=== PATIENT | female | born 1950 | race Caucasian/White ===

== ENCOUNTER 2020-01-29 15:48 | Observation (INO) ==
--- NOTE | 2020-01-29 16:12 | ERNOTE ---
Chest Pain/Cardiac HPI Chief Complaint: Chest Pain Time Seen by Provider: 01/29/20 15:50 Source: patient Exam Limitations: no limitations Allergies/Adverse Reactions: Allergies No Known Allergies Allergy (Verified 01/29/20 16:01) Home Medications: HOME MEDICATIONS Levothyroxine Sodium [Synthroid] 50 mcg PO DAILY 01/29/20 [Last Taken Unknown] Narrative: Patient is coming to the ER for chest pain. She states the pain started last night about 7 PM, central pressure radiating towards her back where it feels more sharp. She was able to sleep, but still states that the pain lasted t hrough the night, resolved at some point this morning. At this point she still has some sharp discomfort in her back, no more pressure feeling, she states "I just do not feel good" She has no personal history of heart disease, has a strong family history of coronary artery disease, her father in his late 60s of a massive heart attack. Her brother had a stent placed a few days ago, he had bypass surgery last week and is currently in his mid 70s Date (Duration): 01/28/20 Time (Timing): 19:00 Timing: intermittent Severity/Quality: pressure Location: central Chest Pain Radiation: shoulders, back Activities at Onset: sleep Modifying Factors - Improves: Absent: breathing, exercise, position, movement Modifying Factors - Worsens: Present: nothing. Absent: exercise Nitro Today/Relief: no nitro taken today Aspirin Treatment Today: 81 mg x 4, provided at home Associated Symptoms: Present: shortness of breath. Absent: headache, dizziness, diaphoresis, fever/chills, heartburn, nausea, vomiting Prior Chest Pain/Cardiac Workup: Reports: no prior cardiac workup. Denies: prior chest pain Prior Treatment: Denies: recently seen, currently on antibiotics Review of Systems - Review of Systems Constitutional: Absent: recent illness, fever, chills ENT: Absent: nose congestion, sore throat Respiratory: Absent: shortness of breath Cardiology: Present: See HPI, chest pain. Absent: palpitations Gastrointestinal/Abdominal: Absent: nausea, abdominal pain Genitourinary: Present: no symptoms reported Musculoskeletal: Present: See HPI Neurological: Absent: headache Medical History (Last Reviewed 01/29/20 @ 16:11 by Beulah Robin MD) Hypothyroid Surgical History: Surgical History (Last Reviewed 01/29/20 @ 16:11 by Beulah Robin MD) H/O: hysterectomy Family History: Family History (Last Updated 01/29/20 @ 16:00 by Sherley Gao RN) Brother Myocardial infarction Father Myocardial infarction Social History: (Last Updated 01/29/20 @ 16:01 by Sherley Gao RN) Tobacco: Smoking Status: Former smoker Alcohol: alcohol intake: former Substance Use: substance use type: does not use Physical Exam - Physical Exam General Appearance: Present: wd/wn, alert, no apparent distress, anxious Eye Exam: Normal inspection: bilateral Ears, Nose, Throat: Present: normal pharynx Respiratory: Present: no respiratory distress, normal breath sounds, no accessory muscle use, chest nontender, lungs clear Cardiovascular/Chest: Present: regular rate, rhythm, no murmur Gastrointestinal/Abdominal: Present: normal bowel sounds, nontender, nondistended, soft Back Exam: Present: normal inspection, no vertebral tenderness. Absent: muscle spasm Extremity Exam: Present: no edema Neurological Exam: Present: alert, oriented, normal mood/affect Skin Exam: Present: normal color, warm/dry Progress - Results and Orders Patient's Lab Results:: I have reviewed the patient's lab results. - Vital Signs Patient's Vital Signs:: I have reviewed the patient's vital signs. Vital Signs: Vital Signs 01/29/20 15:48 Temperature 36.8 C Pulse Rate 62 Respiratory Rate 16 Blood Pressure 173/83 H O2 Sat by Pulse Oximetry 95 - EKG EKG #1 EKG: NSR - sinus bradyacardia, nonspecific ST T wave changes EKG read: Interp. by me - X-Ray X-Ray #1 X-Ray: chest - no acute changes Interpretation: Reviewed by me - CT/Ultrasound CT/Ultrasound Narrative: CTA aorta: MPRESSION: MILD SCATTERED ATHEROSCLEROTIC DISEASE. NO AORTIC DISSECTION. NO THORACIC OR ABDOMINAL AORTIC ANEURYSM. OTHER INCIDENTAL FINDINGS DISCUSSED. - Progress/Reassessment Chief Complaint: Chest Pain Progress Note-Subjective: 01/29/20 16:48 discussed test results and limits of test to rule CAD patient denies chest pressure at this time but continues to have sharp back pain without tenderness on palpation will get CTA aorta 01/29/20 17:47 discussed test results with patient and , on interchest patient has a score of 2 and is not considered low risk offered admission, patient agreed 01/29/20 17:50 discussed with paloma Maldonado to admit for chest pain observation Departure Clinical Impression: Chest pain Qualifiers: Chest pain type: unspecified Qualified Code(s): R07.9 - Chest pain, unspecified - Departure Disposition: Still a patient Condition: Stable
[2020-01-29 16:22] LABS: Hematocrit 40.8 % (37.0-47.0); Hemoglobin 13.3 gm/dL (12.5-16.0); Mean Cell Volume 89.9 fl (78-100); Mean Corpuscular Hemoglobin 29.3 pg (27-31); Mean Corpuscular Hgb Conc 32.6 g/dl (32-36); Mean Platelet Volume 9.7 fl (8-12.5); Neutrophil # 3.6 K/mm3 (1.3-6.0); Neutrophil % 66.9 % (42-75.0); Platelet Count 222 K/mm3 (150-450); Red Blood Count 4.54 M/mm3 (4.2-5.4); Red Cell Distribution Width 13.3 % (11.5-14.0); White Blood Count 5.4 K/mm3 (4.0-10.5)
[2020-01-29 16:34] LABS: Prothrombin Time (Patient) 10.7 Seconds (9.1-10.7)
[2020-01-29 16:38] LABS: INR 1.08 INR (0.92-1.08)
[2020-01-29 16:39] LABS: ALT 19 U/L (19-67); AST 14 U/L (0-48); Albumin * 3.8 gm/dl (3.4-5.0); Alkaline Phosphatase * 81 U/L (50-170); Anion Gap 8.9 mmol/L (6.8-13.8); BUN/Creatinine Ratio 13.2 (9.0-21.6); Bilirubin, Total 0.6 mg/dL (0.0-1.1); Blood Urea Nitrogen 10 mg/dL (3-23); Ca. Corrected For Albumin 8.6 mg/dL (8.4-10.2); Calcium * 8.8 mg/dL (7.9-10.9); Carbon Dioxide 29.8 mmol/L (24-32.6); Chloride 105 mmol/L (97-106); Glucose * 94 mg/dL (70-110); Potassium 3.7 mmol/L (3.4-4.6); Sodium 140 mmol/L (132-142); Total Protein 7.3 gm/dL (6.2-8.2); Troponin I Less than 0.017 ng/mL (0.00-0.10)
[2020-01-29] MEDS ORDERED: ROSUVASTATIN CALCIUM 20 MG TABLET PO STA (18:16)
--- NOTE | 2020-01-29 20:10 | HP ---
Chief Complaint - Chief Complaint Date of Service: 01/29/20 Time of Service: 20:09 Chief Complaint: chest pain History of Present Illness: Patient with past medical history of hypothyroidism presents with 1 day of chest pain. It started with back pain between her shoulder blades last night, and this morning she woke with lower anterior bilateral chest pain and some pain in her left arm. She took four baby aspirin last night and four baby aspirin this morning to try to help with the pain. She denies shortness of breath, nausea, diaphoresis. She has a strong family history of heart disease, with fatal AL in her father and brother. Her brother had a negative stress test prior to having a cardiac cath that showed blockages. She also states her daughter went to the ED months with chest pain thinking it was a heart attack, and it turned out to be a thyroid disorder. Denies alcohol or tobacco use. She is admitted for chest pain rule out. Initial troponin was negative. EKG showed sinus bradycardia. Since she was having the back pain, CT angio was obtained, which showed "MILD SCATTERED ATHEROSCLEROTIC DISEASE. NO AORTIC DISSECTION. NO THORACIC OR ABDOMINAL AORTIC ANEURYSM." Currently, she is not having the back pain, but is having some dull anterior chest pain. Her blood pressure is higher than her normal, with systolic readings in the 150s. Medical History (Last Reviewed 01/29/20 @ 19:04 by Uyen Sanchez RN) Hypothyroid Surgical History: Surgical History (Last Reviewed 01/29/20 @ 19:04 by Uyen Sanchez RN) H/O: hysterectomy Family History: Family History (Last Reviewed 01/29/20 @ 19:05 by Uyen Sanchez RN) Brother Myocardial infarction Father Myocardial infarction Social History: (Last Updated 01/29/20 @ 19:07 by Uyen Sanchez RN) Tobacco: Smoking Status: Never smoker Alcohol: alcohol intake: never Substance Use: substance use type: does not use Dietary Habits: well-balanced diet: daily or most days caffeine: Yes Type: coffee daily servings of milk/calcium: 0-1 eating out: rarely or never reads food labels: seldom or never during the past year weight has: remained stable Review Of Systems (GEN) - Review of Systems Generalized/Overall Review: Absent: Fever Respiratory: Present: Shortness of Breath - Feels a "catch" with inhalation. Absent: Cough Cardiac: Present: Chest Pain. Absent: Edema Abdominal: Absent: Nausea, Vomiting, Constipation, Diarrhea Genitourinary: Absent: Dysuria Neurological: Present: No Symptoms Reported Skin: Present: No Symptoms Reported Immunizations: IMMUNIZATION HX Immunizations Up to Date Yes History of Influenza Vaccine No Hx Pneumococcal Vaccination No Allergies/Adverse Reactions: Allergies Allergy/AdvReac Type Severity Reaction Status Date / Time No Known Allergies Allergy Verified 01/29/20 16:01 Home Medications: HOME MEDICATIONS Levothyroxine Sodium [Synthroid] 50 mcg PO DAILY 01/29/20 [Last Taken 01/29/20 05:30] Exam - Exam Vital Signs: Vital Signs - Last Taken Temp 36.8 C 01/29/20 18:41 Pulse 60 01/29/20 18:41 Resp 17 01/29/20 18:41 BP 157/80 H 01/29/20 18:41 Pulse Ox 100 01/29/20 18:41 Constitutional: Present: Alert, Cooperative, No distress Respiratory: Present: lungs clear, normal breath sounds, no respiratory distress Cardiovascular/Chest: Present: regular rate, rhythm Diagnostic Studies: Abnormal Lab Results 01/29/20 Range/Units 16:14 Lymphocytes # 1.20 L (1.5-3.5) k/mm3 Laboratory Results WBC 5.4 K/mm3 (4.0-10.5) 01/29/20 16:14 RBC 4.54 M/mm3 (4.2-5.4) 01/29/20 16:14 Hgb 13.3 gm/dL (12.5-16.0) 01/29/20 16:14 Hct 40.8 % (37.0-47.0) 01/29/20 16:14 MCV 89.9 fl (78-100) 01/29/20 16:14 MCH 29.3 pg (27-31) 01/29/20 16:14 MCHC 32.6 g/dl (32-36) 01/29/20 16:14 RDW 13.3 % (11.5-14.0) 01/29/20 16:14 Plt Count 222 K/mm3 (150-450) 01/29/20 16:14 MPV 9.7 fl (8-12.5) 01/29/20 16:14 Immature Gran % (Auto) 0.20 % (0.001-0.429) 01/29/20 16:14 Immature Gran # (Auto) 0.01 K/mm3 (0.000-0.0310) 01/29/20 16:14 Neutrophils % 66.9 % (42-75.0) 01/29/20 16:14 Lymphocytes % 22.3 % (20-51) 01/29/20 16:14 Monocytes % 7.8 % (0.0-9) 01/29/20 16:14 Eosinophils % 1.9 % (0.0-3.0) 01/29/20 16:14 Basophils % 0.9 % (0.0-1.0) 01/29/20 16:14 Nucleated RBC % 0.0 k/mm3 (0-1) 01/29/20 16:14 Neutrophils # 3.6 K/mm3 (1.3-6.0) 01/29/20 16:14 Lymphocytes # 1.20 k/mm3 (1.5-3.5) L 01/29/20 16:14 Monocytes # 0.4 k/mm3 (0.0-1.0) 01/29/20 16:14 Eosinophils # 0.1 k/mm3 (0.0-0.7) 01/29/20 16:14 Absolute Basophils 0.1 k/mm3 (0.0-0.1) 01/29/20 16:14 PT 10.7 Seconds (9.1-10.7) 01/29/20 16:14 INR (Anticoag Therapy) 1.08 INR (0.92-1.08) 01/29/20 16:14 PTT ([place]) 28.0 Seconds (24-32) 01/29/20 16:14 Sodium 140 mmol/L (132-142) 01/29/20 16:14 Plasma Sodium 140 mmol/L (130-142) 01/29/20 16:14 Potassium 3.7 mmol/L (3.4-4.6) 01/29/20 16:14 Chloride 105 mmol/L (97-106) 01/29/20 16:14 Carbon Dioxide 29.8 mmol/L (24-32.6) 01/29/20 16:14 Anion Gap 8.9 mmol/L (6.8-13.8) 01/29/20 16:14 BUN 10 mg/dL (3-23) 01/29/20 16:14 Creatinine 0.76 mg/dL (0.4-1.4) 01/29/20 16:14 Est GFR (Non-Af Amer) 80 mL/min (60-130) 01/29/20 16:14 BUN/Creatinine Ratio 13.2 (9.0-21.6) 01/29/20 16:14 Random Glucose 94 mg/dL (70-110) 01/29/20 16:14 Calcium 8.8 mg/dL (7.9-10.9) 01/29/20 16:14 Calcium Adj for Albumin 8.6 mg/dL (8.4-10.2) 01/29/20 16:14 Total Bilirubin 0.6 mg/dL (0.0-1.1) 01/29/20 16:14 AST 14 U/L (0-48) 01/29/20 16:14 ALT 19 U/L (19-67) 01/29/20 16:14 Alkaline Phosphatase 81 U/L (50-170) 01/29/20 16:14 Troponin I Less than 0.017 ng/mL (0.00-0.10) 01/29/20 16:14 Total Protein 7.3 gm/dL (6.2-8.2) 01/29/20 16:14 Albumin 3.8 gm/dl (3.4-5.0) 01/29/20 16:14 Assessment/Plan - Assessment/Plan (1) Chest pain Assessment: Differential includes ACS, pulmonary source, reflux, chest trauma, costochondritis, anxiety. Initial troponin was negative and no concerning findings for ischemia or infarct on EKG. Repeat troponin pending. She does not have cardiac risk factors. Denies respiratory complaints. She has had trouble with dysphagia in the past, but that has not increased currently. No recent trauma and no recent upper respiratory infection. She does not feel like she has anxiety, but she does report her previous PCP told her she worries about things. Lipid panel pending. She was given a dose of rosuvastatin in the ED. If ASCVD risk is higher than 7.5%, will discuss starting a statin medicine. Of note, she has taken 8 baby aspirin, which is 648 mg of aspirin in 24 hours. Will need to monitor for any signs of GI distress. If troponin is negative, can DC in the morning. Will order a stress test on discharge. Will discuss further with her possible cardiology referral. Problem: Acute Qualifiers: Chest pain type: unspecified Qualified Code(s): R07.9 - Chest pain, unspecified (2) Hypothyroidism Assessment: She is currently prescribed 50 mcg levothyroxine. TSH pending, and will adjust dose if needed. She reports her most recent TSH was drawn a year ago. Problem: Chronic (3) Elevated blood pressure reading Assessment: She reports having low blood pressure normally. Several of her blood pressure readings have been systolic 150s, diastolic 70s. We will not administer an antihypertensive, as her elevated pressure may be secondary to her acute situation and may resolve without intervention. Recommend monitoring blood pressure at outpatient visits, and starting an antihypertensive if indicated at that time. Problem: Acute
[2020-01-29 20:47] LABS: Chol/HDL Risk Ratio 2.6 mg/dL (3.3-4.4)
[2020-01-29 20:56] LABS: Troponin I Less than 0.017 ng/mL (0.00-0.10)
[2020-01-30] MEDS ORDERED: LEVOTHYROXINE SODIUM 50 MCG TABLET PO SCH (07:00)
--- NOTE | 2020-01-30 08:19 | DS ---
(1) Chest pain Problem: Resolved Qualifiers: Chest pain type: unspecified Qualified Code(s): R07.9 - Chest pain, unspecified (2) Hypothyroidism Problem: Chronic (3) Elevated blood pressure reading Problem: Resolved Date of Discharge:: 01/30/20 Hospital Course: Patient with past medical history of hypothyroidism presented with one day of chest pain. It started with back pain between her shoulder blades last night, and the morning of admission she woke with lower anterior bilateral chest pain and some pain in her left arm. She took four baby aspirin last night the night before, and four baby aspirin in the morning morning to try to help with the pain. She denies shortness of breath, nausea, diaphoresis. She reports negative stress tests in the past. She has a strong family history of heart disease, with fatal MN in her father and brother. Her brother had a negative stress test prior to having a cardiac cath that showed blockages. She also states her daughter went to the ED months with chest pain thinking it was a heart attack, and it turned out to be a thyroid disorder. Denies alcohol or tobacco use. She is admitted for chest pain rule out. Troponins were negative. EKG showed sinus bradycardia. Since she was having the back pain, CT angio was obtained, which showed "MILD SCATTERED ATHEROSCLEROTIC DISEASE. NO AORTIC DISSECTION. NO THORACIC OR ABDOMINAL AORTIC ANEURYSM." On admission, she was not having the back pain, but is having some dull anterior chest pain. Her blood pressure was higher than her normal, with systolic readings in the 150s. BP improved overnight, and was 120's/70's the day of DC. Her chest pain was no longer present in the morning, and she felt comfortable going home. Her TSH was checked, and was elevated at 7.42. Will increase her levothyroxine dose to 75 mcg, and recheck in 6 weeks. Lipid panel was checked, and her 10 year ASCVD risk was 7.2%, below threshold where statin is recommended. She was given a dose of rosuvastatin in the ED. Discussed stress test and cardiology referral, and she declined both at this time. Her CP was felt to be due to a musculoskeletal source. Procedures Performed: none Results and Findings: Lab Pending Results 01/29/20 16:14: WBC 5.4, RBC 4.54, Hgb 13.3, Hct 40.8, MCV 89.9, MCH 29.3, MCHC 32.6, RDW 13.3, Plt Count 222, MPV 9.7, Immature Gran % (Auto) 0.20, Immature Gran # (Auto) 0.01, Neutrophils % 66.9, Lymphocytes % 22.3, Monocytes % 7.8, Eos inophils % 1.9, Basophils % 0.9, Nucleated RBC % 0.0, Neutrophils # 3.6, Lymphocytes # 1.20 L, Monocytes # 0.4, Eosinophils # 0.1, Absolute Basophils 0.1 01/29/20 16:14: PT 10.7, INR (Anticoag Therapy) 1.08, PTT ([place]) 28.0 01/29/20 16:14: Sodium 140, Plasma Sodium 140, Potassium 3.7, Chloride 105, Carbon Dioxide 29.8, Anion Gap 8.9, BUN 10, Creatinine 0.76, Est GFR (Non-Af Amer) 80, BUN/Creatinine Ratio 13.2, Random Glucose 94, Calcium 8.8, Calcium Adj for Albumin 8.6, Total Bilirubin 0.6, AST 14, ALT 19, Alkaline Phosphatase 81, Troponin I Less than 0.017, Total Protein 7.3, Albumin 3.8 01/29/20 20:27: Troponin I Less than 0.017, TSH 7.420 H 01/29/20 20:27: Triglycerides 71, Cholesterol 244 H, LDL Cholesterol 139 H, VLDL Cholesterol 14, HDL Cholesterol 91 H, Cholesterol/HDL Ratio 2.6 L Discharge Location: Home Disposition: Home self-care Condition: Good Discharge Activity: Activity as tolerated Discharge Diet: General/regular food Referrals: Dede Proctor DO [Staff Physician] - One Week Prescriptions (Any new or edited meds): Levothyroxine Sodium [Synthroid] 75 mcg PO DAILY #45 Complete Home Medications List: Complete Home Medication List: Levothyroxine Sodium [Synthroid] 75 mcg PO DAILY #45 01/30/20 Forms: Patient Portal Registration
[2020-01-30 08:44] VITALS: BP 131/72
== END 2020-01-30 09:00 | disposition home or self-care (01) ==
LOC: ER 15:48 → MS 15:48
PROVIDERS: ADMIT Family Medicine; ATTEND Family Medicine
DX: R07.9 Chest pain, unspecified; E03.9 Hypothyroidism, unspecified; R03.0 Elevated blood-pressure reading, without diagnosis of hypertension
CPT/HCPCS: 36415; 71020; 71046; 71275; 74175; 80053; 80061; 84443; 84484; 85025; 85610; 85730; 93005; 99284; G0378; Q9967